=== PATIENT | male | born 1980 | race Caucasian/White ===

== ENCOUNTER → 2020-04-24 | Emergency (ER) | payer OTHER ==
[~2020-04-24] VITALS: Ht 188 cm; Wt 102.3 kg
[~2020-04-24] MED LIST: CYCL-1 PO; LIDOcaine 5% patch TP STA; METH4TAB81 PO; dexamethasone sod phosphate 10mg/ml inj IM STA
[2020-04-24 10:49] VITALS: BP 133/80
== END | disposition home or self-care (01) ==
LOC: ER 10:36
DX: M54.5 Low back pain (principal); Z79.899 Other long term (current) drug therapy
CPT/HCPCS: 72114; 96372; 99283; J1100